=== PATIENT | male | born 1955 | race Hispanic/Latino ===

== ENCOUNTER 2016-10-14 05:41 | Day surgery (SDC) | payer OTHER ==
--- NOTE | 2016-10-12 15:28 | PCM.ANEPRE ---
Anesthesia Pre-Op Review Reason for Review: STOP BANG 12/15 Anesthesia Recommendations: Proceed with Procedure Additional Comments CHASITY protocol. Misael Ma MD Oct 12, 2016 15:27
[~2016-10-14] VITALS: Ht 167.6 cm; Wt 86.1 kg
[2016-10-14] VITALS (9 sets, daily range): BP systolic 134–185; BP diastolic 79–104; PULSE 68–79; RESP 14–17; O2SAT 94–98
[~2016-10-14 05:41] MED LIST: ASPI-973 PO; CHOL100043 PO; GABA300C PO; IBUP-1827 PO; LISI-567 PO; MULT-1018 PO; SIMV20TA PO
[2016-10-14] MEDS ORDERED: Dexamethasone 4 mg/mL Inj ONE (05:42)
[2016-10-14] MEDS ORDERED: Lidocaine PF 1% 30 mL Inj ONE (05:42)
[2016-10-14] MEDS ORDERED: Phenylephrine/NS 100 mCg/mL 10 mL Syringe IVPUSH ONE (05:42)
[2016-10-14] MEDS ORDERED: Ondansetron 2 mg/mL 2 mL Inj ONE (05:42)
[2016-10-14] MEDS ORDERED: Propofol 10,000 mCg/mL 20 mL Inj ONE (05:42)
[2016-10-14] MEDS: Lactated Ringer's 1,000 ML IV SCH ×2 (06:00→07:30)
[2016-10-14] MEDS ORDERED: CeFAZolin Inj 2 GM in IV Premix 1 EACH IV ONE (06:00)
--- NOTE | 2016-10-14 07:26 | PCM.HPANE ---
Patient Data Date of Service: Oct 14, 2016 Surgeon Admitting Provider: Attending Provider:Hayes Toro MD Primary Care Physician:Rajani Dietrich MD Other Provider:Sandra Anderson Anesthesia Reason for Visit Right Carpal Tunnel Syndrome Ht/WT & BMI Height (Feet): 5 Height (Inches): 6.00 Weight (Kilograms): 86.100 Body Mass Index 30.00 Allergies Coded Allergies: codeine (Verified Allergy, Severe, RASH, 10/12/16) Past Anesthesia History Anesthesia History: Denies:: Anesthesia Reactions, Malignant Hyperthermia Diabetes History Hx Diabetes?: No MRSA MRSA: No Medications Blood Thinner: Aspirin Hypertension Medication: Yes (PRINIVIL) Home Meds Incl Beta Elver: No Reported Medications Simvastatin (Zocor)20 Mg [id number] Mg PO HS 30 Days Ref 0 10/12/16 Cholecalciferol (Vitamin D3) (Vitamin D)1,000 Unit Tablet2,000 Unit PO DAILY #1 BOTTLE Ref 0 10/12/16 Lisinopril 20 Mg [id number] Mg PO DAILY 30 Days Ref 0 10/12/16 Gabapentin (Neurontin)300 Mg [id number] Mg PO TID 30 Days Ref 0 10/12/16 Multivitamin (Multi Vitamin Daily)1 Each Tablet1 Each PO DAILY 30 Days Ref 0 10/12/16 Ibuprofen 600 Mg [id number] Mg PO TID PRN For Pain Ref 0 10/12/16 Aspirin 81 Mg [id number] Mg PO DAILY Ref 0 10/12/16 History History of ENT Problems?: No Hx of Heart Problems?: Yes Cardiovascular History: Positive for:: Cardiac Surgery (S/P HEART CATH 2010) Chest Pain (2006-01 HX CO) Coronary Artery Disease (MINIMAL, ACCORDING TO PT) Hypertension (HYPERLIPIDEMIA) Denies:: Heart Murmur Other History/Comments > 4 mets no angina Hx of Respiratory Problem?: Yes Respiratory History: Positive for:: Cough (CHRONIC COUGH) Denies:: Use of C-PAP Machine (SNORES) Hx Neurologic Problems?: Yes Hx of GI Problems?: No Hx of Problems?: No Male Hx: Denies:: Prostate Problems Scrotal Mass Testicular Surgery Skin History: Denies:: History Skin Disorders? Pressure Ulcers Hx Musculoskeletal Problems?: Yes Musculoskeletal History: Positive for:: Musculoskeletal Trauma (C/OF SHOULDER PAIN S/P RT KNEE RPR 2011) Hx of Psycho/Social Problems?: No Hx Surgeries?: Yes (RT KNEE RPR,HEART CATH X2) Hx Any Other Health Problems?: Yes Other History: Denies:: Cancer Endocrine Disease Hospitalization Thyroid Disease History Blood Transfusions: Denies:: Blood Transfusions Hx Diabetes: No Have You Smoked inLast 12 mo: NoApprox How Many Cigarettes/day: 1/2 PPD Stop/Bang S-Snoring: Do You Snore Loudly: Yes T-Tired: feel tired, fatigued: Yes O-Obsered: Observed not breath: Yes P-Blood Pressure: treated: Yes B- Body Mass Index > 35 kg/m2: No A- Age over 50: Yes N- Neck Large Circumference: No G- Gender Male: Yes CHASITY Total Score: 6 CHASITY Risk Assessment: High Risk, =/>3 Yes CHASITY Category 4 OutPt Procedure: Yes Risk Assessment Category Category 1A: Patient has history of documented sleep apnea, and HAS NOT received any narcotic, sedative or anesthesia administration during this stay. Category 1B: Patient has history of documented sleep apnea, and HAS received any narcotic , sedative or anesthesia administration during this stay Category 2: Patient has SUSPECTED Obstructive Sleep Apnea, and HAS received any narcotic , sedative or anesthesia administration during this stay. Category 3: Patient has SUSPECTED Obstructive Sleep Apnea and HAS NOT received narcotic, sedative or anesthesia administration during this stay. Category 4: Outpatient in Procedural Areas with known sleep apnea or who screen positive for High Risk via the STOP/BANG questionnaire. Exam Exam Vital Signs Vital Signs Date Time Temp Pulse Resp B/P Pulse Ox O2 Delivery O2 Flow Rate FiO2 10/14/16 06:28 37.1 68 14 134/79 97 Room Air 10/14/16 06:11 37.1 68 14 134/79 97 Room Air General Appearance: Alert, Oriented X3, Cooperative, No Acute Distress HEENT/AIRWAY: MP 2, Other (poor dentition, loose front teeth) Lungs: Clear to Auscultation, Normal Air Movement Heart: Exam Unremarkable, Regular Rate/Rhythm, No Murmurs/Rubs/Gallops Meds/Labs/Diagnostics Admission Meds Current Medications Lactated Ringer's (Lr) 1,000 ml @ 80 mls/hr [id number] IV Last administered on t 06:00; Start 10/14/16 at 06:00 Plan Impression Patient chart reviewed, patient interviewed and anesthestic plan with risks, benefits, and alternatives discussed, and informed consent obtained. NPO Status: 8PM ASA Physical Status: ASA3 Severe Disease Anesthetic Plan: GA Bene/Risks/Altern/Consents: Yes HP Complete Prior to Induction: Yes Ion Irwin MD Oct 14, 2016 07:26
[2016-10-14] MEDS ORDERED: Lactated Ringer's 1,000 ML IV SCH (08:06)
[2016-10-14] MEDS ORDERED: Lactated Ringer's 500 ML IV PRN (08:06)
[2016-10-14] MEDS ORDERED: hydrALAZINE 20 mg/mL Inj IVPUSH PRN (08:10)
[2016-10-14] MEDS ORDERED: MetoCLOpramide 5 mg/mL 2 mL Inj IVPUSH PRN (08:10)
[2016-10-14] MEDS ORDERED: Labetalol 5 mg/mL 4 mL Inj IV PRN (08:10)
[2016-10-14] MEDS ORDERED: fentaNYL-PF 50 mCg/mL 2 mL Inj IVPUSH PRN (08:10)
[2016-10-14] MEDS ORDERED: Atropine 0.4 mg/mL Inj IVPUSH PRN (08:10)
[2016-10-14] MEDS ORDERED: EPHEDrine Sulfate 50 mg/mL Inj IVPUSH PRN (08:10)
[2016-10-14] MEDS ORDERED: Ondansetron 2 mg/mL 2 mL Inj IVPUSH PRN (08:10)
[2016-10-14] MEDS ORDERED: HYDROmorphone 1 mg/mL Inj IVPUSH PRN (08:10)
[2016-10-14] MEDS ORDERED: Phenylephrine 10,000 mCg/mL Inj IVPUSH PRN (08:10)
[2016-10-14] MEDS ORDERED: Bupivacaine-MPF 0.5% 30 mL Inj INFILTRATE ONE (08:18)
--- NOTE | 2016-10-14 08:54 | PCM.ANEP1 ---
Post Anesthesia Phase 1 PACU Phase 1 Assessment Date of Service: Oct 14, 2016 Vital Signs 174/102 86 12 95% RA Anesthetic Administered: GA Lungs: Clear to Auscultation, Normal Air Movement Ion Irwin MD Oct 14, 2016 08:54
[2016-10-14] MEDS ORDERED: oxyCODONE-Acetamin 5-325 mg Tablet PO PRN (09:00)
[2016-10-14] MEDS ORDERED: Labetalol 5 mg/mL 20 mL Inj ONE (09:06)
--- NOTE | 2016-10-14 10:31 | PCM.ANEP2 ---
Post Anesthesia Evaluation ASA/CMS Post Anesthesia Date of Service: Oct 14, 2016 VS in Patient's Normal Range?: Yes Resp Stable; Airway Patent?: Yes CV Function & Hydration Stable: Yes Mental Status Recovered?: Yes Pain control Satisfactory?: Yes N/V Control Satisfactory?: Yes Ion Irwin MD Oct 14, 2016 10:31
--- NOTE | 2016-10-14 13:54 | OP ---
[address] [address] OPERATIVE REPORT PATIENT: COLLETTE ELIZABETH : 1955 MR#: [id number] ADMIT: 10/14/2016 JOB ID: [id number] DATE OF SURGERY: 10/14/2016 PREOPERATIVE DIAGNOSIS(ES): Right carpal tunnel syndrome. ICD 10 code G56.01. POSTOPERATIVE DIAGNOSIS(ES): Right carpal tunnel syndrome. ICD 10 code G56.01. PROCEDURE: Right carpal tunnel release. CPT code 35588. SURGEON: Hayes Toro MD. ANESTHESIA: General. ESTIMATED BLOOD LOSS: Less than 2 mL. 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 DRAINS: None. COMPLICATIONS: None. Sponge and needle count correct. INDICATIONS: This 61-year-old, right-hand dominant male with severe right carpal tunnel syndrome, failing conservative therapy and problems with chronic numbness in the hand and weakness. PROCEDURE IN DETAIL: Under adequate general anesthetic, a well-padded tourniquet was applied to the right upper extremity. The right arm was prepped and draped in sterile fashion. After appropriate time-out was called The right arm was elevated, exsanguinated, and tourniquet inflated to 250 mmHg. A curvilinear incision was fashioned just ulnar to the thenar crease of the hand. Care was taken to protect the ulnar nerve and artery more ulnarly. Care was also taken to protect the palmar cutaneous branch of the median nerve. The proximal portion of the palmar fascia was incised down to the transverse carpal ligament. A small incision was fashioned in the transverse carpal ligament proximally. A small elevator was placed underneath the transverse carpal ligament and the transverse carpal ligament was released under direct visualization from a proximal to distal direction. The palmar fascia was released distal to the ligament including palmar fascia, down to the level of the superficial palmar arch. The recurrent motor branch of the median nerve was identified. There were a few adhesions around the edge of that nerve and they were just gently bluntly. The nerve was noted to be thickened with a filmy overlay due to the fact that the nerve has not been very mobile within the carpal canal. Attention was next turned to the antebrachial cutaneous fascia. The skin was elevated proximal to the distal wrist crease. With the wrist slightly flexed to protect the nerve and a [place] elevator on top of the nerve, the antebrachial cutaneous fascia was released under direct visualization just elevating with skin retractors. The wound was irrigated with saline and infiltrated with 0.5% plain Marcaine. Tourniquet was released. Minimal hemostasis required. The patient was to found have very thickened, enlarged median nerve due to the prolonged compression. Minimal hemostasis was required. Skin was reapproximated with interrupted horizontal mattress sutures of 4-0 nylon. Xeroform and a dry sterile bulky dressing was applied. PLAN: The patient will be discharged to home. He was given a prescription for Percocet 5/325, as well as a prescription for Keflex 500 mg. He has been encouraged to do gentle finger range of motion but not do any heavy gripping or lifting. Splint needs to remain clean and dry. Will be seen back in the office in two weeks for wound check and suture removal. Thereafter, he still needs to be careful with the wrist for an additional four weeks and still not do any heavy lifting or gripping but just work on gentle wrist motion and continued finger motion after his next followup appointment. CC: [facility] Orthopedics CC: Feliz Chamberlain
== END 2016-10-14 23:59 | disposition home or self-care (01) ==
LOC: SAS 05:41
PROVIDERS: ATTEND Orthopaedic Surgery
DX: G56.01 Carpal tunnel syndrome, right upper limb (principal); I10 Essential (primary) hypertension; I25.10 Atherosclerotic heart disease of native coronary artery without angina pectoris; Z79.82 Long term (current) use of aspirin; Z79.899 Other long term (current) drug therapy
CPT/HCPCS: 64721; J0690; J1100; J2370; J2405; J7120

== ENCOUNTER → 2017-03-20 | Day surgery (SDC) | payer OTHER ==
[~2017-03-20] VITALS: Ht 167.6 cm; Wt 88.0 kg
[~2017-03-20] MED LIST changes: +OXYC1TAB24 PO; +Sodium Chloride LOK Flush 10 mL Syringe IV PRN; +fentaNYL-PF 50 mCg/mL 2 mL Inj IVPUSH PRN
[2017-03-20 08:45] VITALS: BP 110/75; PULSE 69; RESP 16; O2SAT 97
[2017-03-20] MEDS: 0.9% Sodium Chloride 1,000 ML IV PRN ×2 (09:32→10:15)
--- NOTE | 2017-03-20 10:31 | PCM.ENDCOL ---
Colonoscopy Date of Service: Mar 20, 2017 Physician Ricardo Loaiza MD Pre Procedure Diagnosis: FIT test positive screening Post Procedure Dx & Findings: Polyp hemorrhoids Procedure Colonoscopy PROCEDURE IN DETAIL: Prep adequate Withdrawal time 1 hour After unremarkable rectal examination the Olympus video colonoscope was inserted patient's anal canal and was advanced to cecum. Landmarks were identified including the ileocecal valve and appendiceal orifice. Scope was withdrawn systematically. Visualized colonic mucosa showed healthy shiny mucosa with normal healthy-appearing vasculature. In the cecum, there was a 5 mm polyp which was removed completely using cold snare. Also there was a 2 cm flat polyp which was removed completely after lifting 6 mL of normal saline. This was removed completely using hot snare. 3 clips deployed and the entire side sealed off. In the transverse colon, there was a 2.5 cm polyp. 8 cc of normal saline injected for lifting. Hot snare used and this was removed completely. 4 clips deployed and the entire site was sealed off. In the rectosigmoid junction, there were total of 3 polyps; the smallest one was about 5 mm. This was removed completely using cold snare. The other polyps were 1 cm to 1.5 cm in size. They are both removed completely using a hot snare. The site appeared to have persistent oozing of blood. 2 clips deployed and complete hemostasis achieved. In the rectum, there was a 2 mL polyp. 5 mL of normal saline used to lift. This was removed completely using hot snare. 2 clips deployed to seal off the site. In the rectum retroflexion was done which showed hemorrhoids. Anal canal was inspected carefully on the way out and hemorrhoids noted. Impression Multiple polyps and majority of them were large polyps greater than a centimeter. All removed successfully. Hemorrhoids Modifier 22 requested. Recommendation Repeat colonoscopy in 6 months Avoid NSAIDs for 2 weeks. Modifier 22 requested. Presedation Assessment Risks and Benefits Informed consent was obtained from the patient after all risks and benefits including but not limited to drug reaction, infection, pain, bleeding, perforation, as well as alternatives were discussed. Patient monitoring Continuous pulse oximetry, cardiac monitoring, blood pressure monitoring, IV access, and oxygen at 2L per nasal cannula. Periprocedural Fentanyl: Fentanyl 100mcg Incrementally Midazolam: Midazolam 5mg Incrementally Complications There were no periprocedural complications identified. Post Procedure Plan Post Procedure Recommendations 1. Restrict activities today. 2. Resume normal activities in the morning. 3. Resume medications. 4. Patient informed of normal post procedure side effects as bloating, drowsiness, blood streaking in the stool. 5. average risk CRCS. If colon polyps come back as: -Hyperplastic- can repeat colonoscopy in 10 years -Tubular adenoma- repeat colonoscopy in 5 years -Tubulovillous/villous adenoma- repeat colonoscopy in 3 years -If any dysplasia- return to clinic as soon as possible 6. Please don't hesitate to call me with any questions. Ricardo Loaiza MD Mar 20, 2017 10:31
[2017-03-20 10:34] VITALS: BP 124/69; PULSE 64; RESP 16; O2SAT 99
[2017-03-20 10:44] VITALS: BP 113/69; PULSE 60; RESP 14; O2SAT 99
[2017-03-20 10:53] VITALS: BP 110/67; PULSE 58; O2SAT 99
--- NOTE | 2017-03-21 17:25 | PATH ---
SURGICAL PATHOLOGY Attending Physician:Ricardo Loaiza M.D. CASE STATUS: Signed Out PATIENT NAME: COLLETTE ELIZABETH PID: [id number] : 1955 DATE COLLECTED:03/20/2017 17:26 SPECIMEN: 1: Colon, Polyp 2: Colon, Polyp 3: Colon, Polyp 4: Rectum, Biopsy CLINICAL HISTORY: 1). CECAL POLYPS 2). TRANSVERSE COLON POLYP 3). RECTAL-SIGMOID POLYP 4). RECTAL POLYP FINAL DIAGNOSIS: 1. Cecal Polyps, Polypectomies: Tubular adenomata. 2. Transverse Colon Polyp, Polypectomy: Fragmented tubulovillous adenoma. 3. Rectosigmoid Polyps, Polypectomies: Fragments of tubular adenoma/tubulovillous adenoma. 4. Rectal Polyp, Polypectomy: Tubulovillous adenoma. ICD10: D12.6 GROSS DESCRIPTION: The specimen is received in four formalin filled containers labeled with the patient's name. 1). The specimen is labeled "cecal polyp" and consists of multiple portions of tissue which aggregate to 0.7 x 0.6 x 0.5 CM. The specimen is entirely submitted in cassette 1A. 2). The specimen is labeled "transverse colon polyp" and consists of multiple portions of tissue which aggregate to 1.0 x 1.0 x 0.4 CM. The specimen is filtered and entirely submitted in cassette 2A. 3). The specimen is labeled "rectal sigmoid colon polyp" and consists of 3 portions of tissue which aggregate to 0.7 x 0.6 x 0.6 CM. The 2 largest fragments are bisected, all fragments are entirely submitted in cassette 3A. 4). The specimen is labeled "rectal polyp" and consists of a 0.7 x 0.7 x 0.6 CM portion of tissue which is trisected and entirely submitted in cassette 4A. 03/20/2017DC ICD-9 CODES: CPT CODES: 1: 07273 2: 15270 3: 35298 4: 20089 Electronically Signed Out Ji Singleton MD, Ph.D. [facility] [place] [address] Technical component performed at [facility], [address], [place], [address]
== END | disposition home or self-care (01) ==
LOC: END 01:20
PROVIDERS: ATTEND Internal Medicine
DX: D12.0 Benign neoplasm of cecum (principal); D12.3 Benign neoplasm of transverse colon; D12.7 Benign neoplasm of rectosigmoid junction; D12.8 Benign neoplasm of rectum; K64.9 Unspecified hemorrhoids; R19.5 Other fecal abnormalities; I10 Essential (primary) hypertension; E78.5 Hyperlipidemia, unspecified; Z79.82 Long term (current) use of aspirin; Z87.891 Personal history of nicotine dependence
CPT/HCPCS: 45381; 45385; 99153; G0500; J2250; J3010; J7030